=== PATIENT | male | born 1955 | race Two or more races ===

== ENCOUNTER 2022-10-09 13:58 | Emergency (ER) | payer OTHER ==
[~2022-10-09] VITALS: Ht 162.6 cm; Wt 79.8 kg
[2022-10-09] MEDS ORDERED: GLUMETZA500 MG (15:31)
[2022-10-09] MEDS ORDERED: ATORVASTATIN CA10 MG (15:31)
[2022-10-09] MEDS ORDERED: NEURONTIN300 MG (15:31)
[2022-10-09] MEDS ORDERED: ENALAPRIL MALEAT5 MG (15:32)
== END 2022-10-09 19:53 | disposition home or self-care (01) ==
LOC: ER 13:58
DX: U07.1 COVID-19 (principal); Z88.0 Allergy status to penicillin